=== PATIENT | male | born 1970 ===

== ENCOUNTER 2016-12-26 02:32 | Emergency (ER) | payer SELFPAY ==
[~2016-12-26] VITALS: Ht 190.5 cm; Wt 96.6 kg
[2016-12-26 02:36] VITALS: BP 125/70; PULSE 109; TEMP 37; Ht 190.5 cm; Wt 96.6 kg
[2016-12-26] MEDS ORDERED: LIDOCAINE/EPINEPH/TETRACAINE 1 EA SYR ONE (02:47)
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
[2016-12-26 04:09] VITALS: O2SAT 99
== END 2016-12-26 04:10 | disposition home or self-care (01) ==
LOC: C.EDB 02:33 → C.EDA 04:10
DX: S01.81XA Laceration without foreign body of other part of head, initial encounter (principal); S09.90XA Unspecified injury of head, initial encounter; Y04.2XXA Assault by strike against or bumped into by another person, initial encounter; Y92.89 Other specified places as the place of occurrence of the external cause; Y99.0 Civilian activity done for income or pay; F17.210 Nicotine dependence, cigarettes, uncomplicated

== ENCOUNTER 2017-01-13 23:46 | Emergency (ER) | payer SELFPAY ==
[~2017-01-13] VITALS: Ht 190.5 cm; Wt 97.5 kg
[2017-01-13 23:49] VITALS: TEMP 36.8; Ht 190.5 cm; Wt 97.5 kg
--- NOTE | 2017-01-14 | EMERGENCY ROOM VISIT NOTE ---
ED Visit Note First contact with patient: 23:52 CHIEF COMPLAINT: Suture removal HISTORY OF PRESENT ILLNESS: This 46 yo patient returns to the ED today for removal of sutures that were placed 21 days ago. There has been no swelling, redness, or drainage from the wound. The patient feels like the laceration is healing well. REVIEW OF SYSTEMS: A 6 system review of systems was completed with positives and pertinent negatives listed in the HPI. PMH: Unchanged from previous visit. ALLERGIES: none PHYSICAL EXAM: Vital Signs: Reviewed Nurse's notes, vital signs stable. GENERAL : pleasant male, in no acute distress. SKIN: There is a sutured wound on the chin with no signs of infection. There is no erythema, swelling, or tenderness. EMERGENCY DEPARTMENT COURSE: 3 sutures were removed without any difficulty and there was no separation of the wound edges. The patient was discharged home in good condition. DIAGNOSIS: Healing laceration and suture removal, chin DISCHARGE INSTRUCTIONS AND TREATMENT: Wash any remaining crusts off of the wound today and resume your normal activities. Current/Historical Medications No Active Prescriptions or Reported Meds Allergies Coded Allergies: No Known Allergies (Unverified , 01/13/17) Vital Signs Date Time Temp Pulse Resp B/P Pulse Ox O2 Delivery O2 Flow Rate FiO2 01/13/17 23:49 36.8 86 18 123/79 100 Room Air Departure Information Prescriptions No Active Prescriptions or Reported Meds Referrals No Doctor, Assigned (PCP) Patient Instructions [facility]
[2017-01-14 00:06] VITALS: BP 118/64; PULSE 84; O2SAT 99
== END 2017-01-14 | disposition home or self-care (01) ==
LOC: C.EDB 23:47 → C.EDC 01-14
DX: Z48.02 Encounter for removal of sutures (principal)